=== PATIENT | male | born 1995 | race African-American/Black ===

== ENCOUNTER 2020-02-25 08:08 | Emergency (ER) | payer OTHER ==
[2020-02-25] MEDS ORDERED: NA CHLORIDE 0.9% 1,000 ML ONE ×2 (08:54→16:20)
[2020-02-25 09:13] LABS: Absolute Lymphocytes (CBC) 0.9 K/uL (0.7-4.9); Basophils % 0.7 % (0-1.3); Hematocrit 41.6 % (39.6-49.0); Lymphocytes % 5.3 % (15.3-44.8); RBC Red Blood Cell Count 5.06 M/uL (4.33-5.43)
[2020-02-25 09:21] LABS: Protime INR 1.1
[2020-02-25 09:34] LABS: ALT/SGPT 91 U/L (12-78); Albumin 4.9 g/dL (3.4-5.0); Alkaline Phosphatase 54 U/L (45-117); BUN Blood Urea Nitrogen 67 mg/dL (7-18); Bicarbonate 24 mmol/L (21-32); Bilirubin Direct 0.6 mg/dL (0-0.2); Bilirubin Total 4.2 mg/dL (0.2-1.0); Glucose Level 116 mg/dL (74-106); Potassium 3.6 mmol/L (3.5-5.1); Protein, Total 9.1 g/dL (6.4-8.2); Sodium Level 136 mmol/L (136-145)
[2020-02-25 09:38] LABS: AST/SGOT 382 U/L (15-37)
--- NOTE | 2020-02-25 09:56 | RAD REPORT ---
EXAM DESCRIPTION: RAD - Abdomen 1 View (KUB) - 02/25/2020 9:32 am CLINICAL HISTORY: ABD PAIN Pain COMPARISON: No comparisons FINDINGS: Motion artifact is present, limiting quality of study. The bowel gas pattern is non-obstru ctive. No evidence of free air or pneumatosis. No suspicious calcifications. No significant bony findings. IMPRESSION: Negative examination.
--- NOTE | 2020-02-25 10:04 | ER ---
Nurse's Notes [facility] Name: Alfredo Silvestre Age: 25 yrs Sex: Male : 1995 Arrival Date: 02/25/2020 Time: 08:23 Bed 20 Private MD: Diagnosis: Acute Renal Failure Presentation: 02/24 08:23 Chief complaint: [employer] officer states that patient's behavior has changed over the past em 24 hours. Stated that patient ingested a balloon on Saturday but it wasn't reported until Saturday and within the last 24 hours patient 'has not been acting right'. Coronavirus screen: Client denies travel out of the [place] in the last 14 days. Ebola Screen: Patient negative for fever greater than or equal to 101.5 degrees Fahrenheit, and additional compatible Ebola Virus Disease symptoms Patient denies exposure to infectious person. Patient denies travel to an Ebola-affected area in the 21 days before illness onset. Initial Sepsis Screen: Does the patient meet any 2 criteria? No. Patient's initial sepsis screen is negative. Does the patient have a suspected source of infection? No. Patient's initial sepsis screen is negative. Risk Assessment: Do you want to hurt yourself or someone else? Unable to obtain Other: [facility] officer states that patient was on SI watch. Onset of symptoms was February 24, 2020. 08:23 Method Of Arrival: Law Enforcement: [place] [employer] em 08:23 Acuity: KEESHA 3 em - Social history:: Smoking status: unknown. Screenin:15 Abuse screen: Denies threats or abuse. Nutritional screening: No deficits noted. vg1 Tuberculosis screening: No symptoms or risk factors identified. Fall Risk No fall in past 12 months (0 pts). No secondary diagnosis (0 pts). IV access (20 points). Ambulatory Aid- None/Bed Rest/Nurse Assist (0 pts). Gait- Normal/Bed Rest/Wheelchair (0 pts) Mental Status- Total [place] Fall Scale indicates. Assessment: 08:15 General: Appears uncomfortable, Behavior is anxious. Pain: Denies pain. Neuro: Level of em Consciousness is awake, alert, obeys commands, Oriented to person, place, situation. Cardiovascular: Capillary refill < 3 seconds in bilateral fingers Patient's skin is warm and dry. Respiratory: Airway is patent Respiratory effort is even, unlabored, Respiratory pattern is regular, symmetrical. GI: No signs and/or symptoms were reported involving the gastrointestinal system. : No signs and/or symptoms were reported regarding the genitourinary system. EENT:. Derm: Skin is pink, warm \\T\\ dry. Musculoskeletal: Range of motion: intact in all extremities. 09:55 Reassessment: No changes from previously documented assessment. Patient and/or family vg1 updated on plan of care and expected duration. Pain level reassessed. Patient is grinding teeth. Patient denies any pain or concerns at this time. 11:10 Reassessment: Patient appears in no apparent distress at this time. No changes from vg1 previously documented assessment. Patient is alert, oriented x 3, equal unlabored respirations, skin warm/dry/pink. Patient in bed resting with eyes closed. Patient still has not been able to leave a UA. 12:12 Reassessment: Patient appears in no apparent distress at this time. Patient and/or vg1 family updated on plan of care and expected duration. Pain level reassessed. Patient is alert, oriented x 3, equal unlabored respirations, skin warm/dry/pink. Patient is standing at bedside. States doesn't feel like sitting down any more. [employer] officers at bedside. 14:30 Reassessment: Notified Kim that patient was agitated and would not sit still to vg1 take blood sample. Was given VO to give Ativan 2mg IVP x1. 15:10 Reassessment: pt restless and anxious, no change from the Ativan, Dr. Alvarez notified, em received new medication order, haldol 5 mg IVP x1. 15:40 Reassessment: Patient appears in no apparent distress at this time. pt resting calmly em with eyes closed, respirations even and unlabored, skin pink warm and dry. 15:54 Reassessment: Pt SPo2 at 87%; placed pt on O2 2L NC. vg1 16:30 Reassessment: Gave Report to Akanksha Whitaker, dispatcher. vg1 16:45 Reassessment: Gave report to Hollis WALTER of [facility]. vg1 17:27 Reassessment: Patient appears in no apparent distress at this time. Patient and/or vg1 family updated on plan of care and expected duration. Pain level reassessed. Patient is alert, oriented x 3, equal unlabored respirations, skin warm/dry/pink. resting in bed with eyes closed. [employer] officers at bedside. Awaiting ETA from EMS. Vital Signs: 08:16 BP 142 / 86; Pulse 109; Resp 14; Pulse Ox 96% on R/A; vg1 08:23 BP 142 / 80; Pulse 109; Resp 20; Temp 97.8(O); Pulse Ox 97% on R/A; Pain 0/10; em 09:09 BP 150 / 105; Pulse 120; Resp 14; Pulse Ox 98% on R/A; vg1 09:50 BP 158 / 100; Pulse 105; Resp 20; Pulse Ox 100% on R/A; vg1 10:30 BP 134 / 61; Pulse 109; Resp 16; Pulse Ox 100% on R/A; em 11:00 BP 145 / 77; Pulse 100; Resp 16; Pulse Ox 100% on R/A; vg1 12:00 BP 122 / 102; Pulse 115; Resp 18; Pulse Ox 100% on R/A; vg1 12:36 BP 131 / 103; Pulse 105; Resp 16; Pulse Ox 100% on R/A; vg1 13:00 BP 134 / 98; Pulse 103; Resp 20; Pulse Ox 98% on R/A; vg1 13:30 BP 138 / 105; Pulse 106; Resp 20; Pulse Ox 97% on R/A; vg1 14:00 BP 134 / 103; Pulse 108; Resp 22; Pulse Ox 97% on R/A; vg1 14:30 BP 113 / 100; Pulse 110; Resp 22; Pulse Ox 99% on R/A; vg1 15:00 BP 136 / 103; Pulse 110; Resp 18; Pulse Ox 98% on R/A; vg1 15:30 BP 134 / 75; Pulse 98; Resp 18; Pulse Ox 97% on R/A; em 16:00 BP 131 / 68; Pulse 90; Resp 16; Pulse Ox 91% on 3 lpm NC; vg1 17:00 BP 130 / 81; Pulse 84; Resp 14; Pulse Ox 97% on 2 lpm NC; vg1 17:30 BP 134 / 88; Pulse 98; Resp 14; Pulse Ox 98% on 2 lpm NC; vg1 ED Course: 08:23 Patient arrived in ED. em 08:28 Glenroy Alvarez MD is Attending Physician. kdr 08:31 Triage completed. em 08:36 Keaton Ramires, RN is Primary Nurse. em 08:42 Kerline Webster, RN is Primary Nurse. vg1 08:45 Inserted saline lock: 20 gauge in right antecubital area, using aseptic technique. vg1 Blood collected. Flushed right antecubital with 2 ml normal saline. 08:55 Initial lab(s) drawn, by me, sent to lab. vg1 09:05 Arm band placed on right wrist. vg1 09:05 Patient has correct armband on for positive identification. Pulse ox on. NIBP on. [employer] vg1 officers outside of room.. 09:33 Abdomen 1 View (KUB) XRAY In Process Unspecified. EDMS 09:56 Appears restless. and grinding teeth. vg1 11:23 initiated transfer to [facility]. bd 12:08 Urine collected: clean catch specimen, clear. vg1 14:32 talked to Sierra, "she is working on transfer". bd 14:38 CK Sent. vg1 14:40 attempted to contact Sierra at [facility]. no answer at her ext. bd 15:17 talked to Daniel at [facility], "Sierra will call me back in about 10 min". bd 16:37 Chest Abd Pelvis Wo Con In Process Unspecified. EDMS 17:38 pt accepted in transfer by dr linares, admin approval given by Sierra Pinto. bd 18:14 No provider procedures requiring assistance completed. Patient transferred, IV remains vg1 in place. Administered Medications: 09:00 Drug: NS 0.9% 1000 ml Route: IV; Rate: 1 bolus; Site: right antecubital; vg1 10:37 Follow up: Response: No adverse reaction; IV Intake: 500ml vg1 11:40 Follow up: IV Status: Completed infusion vg1 14:30 Drug: Ativan 2 mg Route: IVP; Site: right antecubital; vg1 15:17 Follow up: Response: No adverse reaction; No change in condition; Anxiety unchanged em 15:20 Drug: HALdol 5 mg Route: IVP; Site: right antecubital; vg1 16:14 Follow up: Response: No adverse reaction; RASS: Alert and Calm (0) vg1 16:13 Drug: NS 0.9% 1000 ml Route: IV; Rate: 250 ml/hr; Site: right antecubital; vg1 18:17 Follow up: IV Status: Infusion continued upon transfer vg1 Intake: 10:37 IV: 500ml; Total: 500ml. vg1 Outcome: 10:03 ER care complete, transfer ordered by . kdr 18:14 Transferred by ground EMS to [facility], Transfer form vg1 completed. X-rays sent w/ patient. 18:14 Condition: stable 18:14 Instructed on the need for transfer, Demonstrated understanding of instructions. 18:18 Patient left the ED. vg1 Signatures: Dispatcher [employer] EDMS Debbie Blackwell Kevin, MD MD kdr Munoz, Edgar, RN RN Kerline Ugalde RN RN vg1
--- NOTE | 2020-02-25 10:04 | EDPHYS ---
Physician Documentation [facility] Name: Alfredo Silvestre Age: 25 yrs Sex: Male : 1995 Arrival Date: 02/25/2020 Time: 08:23 Bed 20 Private MD: ED Physician Glenroy Alvarez HPI: 02/24 18:06 This 25 yrs old Black Male presents to ER via Law Enforcement with complaints of kdr ingested unknown substance. 18:06 The patient may have swallowed a substance or object on Saturday but was not reported kdr until Saturday. In the past 24 hours, the patient behavior has been more erratic . 18:07 Onset: The symptoms/episode began/occurred gradually, 1 day(s) ago. Severity of kdr symptoms: At their worst the symptoms were mild moderate in the emergency department the symptoms are unchanged. It is unknown whether or not the patient has had similar symptoms in the past. It is unknown whether or not the patient has recently seen a physician. - Social history:: Smoking status: unknown. ROS: 18:07 Constitutional: Negative for fever, chills, and weight loss, Eyes: Negative for injury, kdr pain, redness, and discharge, Neck: Negative for injury, pain, and swelling, Cardiovascular: Negative for chest pain, palpitations, and edema, Respiratory: Negative for shortness of breath, cough, wheezing, and pleuritic chest pain, Abdomen/GI: Negative for abdominal pain, nausea, vomiting, diarrhea, and constipation, Back: Negative for injury and pain, : Negative for injury, bleeding, discharge, and swelling, MS/Extremity: Negative for injury and deformity, Skin: Negative for injury, rash, and discoloration, Allergy/Immunology: Negative for hives, rash, and allergies, Endocrine: Negative for neck swelling, polydipsia, polyuria, polyphagia, and marked weight changes, Hematologic/Lymphatic: Negative for swollen nodes, abnormal bleeding, and unusual bruising. 18:07 Neuro: Positive for altered mental status, Negative for headache, numbness, seizure activity, tremor, visual changes, weakness. 18:07 Psych: Positive for anxiety, Negative for Exam: 18:07 Constitutional: This is a well developed, well nourished patient who is awake, alert, kdr and in no acute distress. Head/Face: Normocephalic, atraumatic. Eyes: Pupils equal round and reactive to light, extra-ocular motions intact. Lids and lashes normal. Conjunctiva and sclera are non-icteric and not injected. Cornea within normal limits. Periorbital areas with no swelling, redness, or edema. Neck: Trachea midline, no thyromegaly or masses palpated, and no cervical lymphadenopathy. Supple, full range of motion without nuchal rigidity, or vertebral point tenderness. No Meningismus. Chest/axilla: Normal chest wall appearance and motion. Nontender with no deformity. No lesions are appreciated. Cardiovascular: Regular rate and rhythm with a normal S1 and S2. No gallops, murmurs, or rubs. Normal PMI, no JVD. No pulse deficits. Respiratory: Lungs have equal breath sounds bilaterally, clear to auscultation and percussion. No rales, rhonchi or wheezes noted. No increased work of breathing, no retractions or nasal flaring. Back: No spinal tenderness. No costovertebral tenderness. Full range of motion. Skin: Warm, dry with normal turgor. Normal color with no rashes, no lesions, and no evidence of cellulitis. MS/ Extremity: Pulses equal, no cyanosis. Neurovascular intact. Full, normal range of motion. Neuro: Awake and alert, GCS 15, oriented to person, place, time, and situation. Cranial nerves II-XII grossly intact. Motor strength 5/5 in all extremities. Sensory grossly intact. Cerebellar exam normal. Normal gait. Psych: Awake, alert, with orientation to person, place and time. Behavior, mood, and affect are within normal limits. 18:07 Abdomen/GI: Inspection: abdomen appears normal, Bowel sounds: active, Palpation: soft, nontender. Vital Signs: 08:16 BP 142 / 86; Pulse 109; Resp 14; Pulse Ox 96% on R/A; vg1 08:23 BP 142 / 80; Pulse 109; Resp 20; Temp 97.8(O); Pulse Ox 97% on R/A; Pain 0/10; em 09:09 BP 150 / 105; Pulse 120; Resp 14; Pulse Ox 98% on R/A; vg1 09:50 BP 158 / 100; Pulse 105; Resp 20; Pulse Ox 100% on R/A; vg1 10:30 BP 134 / 61; Pulse 109; Resp 16; Pulse Ox 100% on R/A; em 11:00 BP 145 / 77; Pulse 100; Resp 16; Pulse Ox 100% on R/A; vg1 12:00 BP 122 / 102; Pulse 115; Resp 18; Pulse Ox 100% on R/A; vg1 12:36 BP 131 / 103; Pulse 105; Resp 16; Pulse Ox 100% on R/A; vg1 13:00 BP 134 / 98; Pulse 103; Resp 20; Pulse Ox 98% on R/A; vg1 13:30 BP 138 / 105; Pulse 106; Resp 20; Pulse Ox 97% on R/A; vg1 14:00 BP 134 / 103; Pulse 108; Resp 22; Pulse Ox 97% on R/A; vg1 14:30 BP 113 / 100; Pulse 110; Resp 22; Pulse Ox 99% on R/A; vg1 15:00 BP 136 / 103; Pulse 110; Resp 18; Pulse Ox 98% on R/A; vg1 15:30 BP 134 / 75; Pulse 98; Resp 18; Pulse Ox 97% on R/A; em 16:00 BP 131 / 68; Pulse 90; Resp 16; Pulse Ox 91% on 3 lpm NC; vg1 17:00 BP 130 / 81; Pulse 84; Resp 14; Pulse Ox 97% on 2 lpm NC; vg1 17:30 BP 134 / 88; Pulse 98; Resp 14; Pulse Ox 98% on 2 lpm NC; vg1 MDM: 10:03 Patient medically screened. kdr 18:07 Data reviewed: vital signs, nurses notes, lab test result(s), radiologic studies. kdr Counseling: I had a detailed discussion with the patient and/or guardian regarding: the historical points, exam findings, and any diagnostic results supporting the discharge/admit diagnosis, lab results, radiology results, the need to transfer to another facility. 02/24 08:31 Order name: Acetaminophen; Complete Time: 09:58 kdr 02/24 08:31 Order name: Basic Metabolic Panel; Complete Time: 09:58 kdr 02/24 08:31 Order name: CBC with Diff; Complete Time: 14:05 kdr 02/24 08:31 Order name: ETOH Level; Complete Time: 09:58 kdr 02/24 08:31 Order name: Hepatic Function; Complete Time: 09:58 kdr 02/24 08:31 Order name: PT-INR; Complete Time: 09:58 kdr 02/24 08:31 Order name: Ptt, Activated; Complete Time: 09:58 kdr 02/24 08:31 Order name: Salicylate; Complete Time: 09:58 kdr 02/24 08:31 Order name: Urine Drug Screen; Complete Time: 14:05 kdr 02/24 08:36 Order name: Abdomen 1 View (KUB) XRAY; Complete Time: 09:58 kdr 02/24 09:17 Order name: CBC Smear Scan; Complete Time: 14:05 EDMS 02/24 13:34 Order name: Urine Dipstick--Ancillary (enter results); Complete Time: 14:05 bd 02/24 14:10 Order name: CK; Complete Time: 18:05 kdr 02/24 08:31 Order name: IV Saline Lock; Complete Time: 09:00 kdr 02/24 08:31 Order name: Labs collected and sent; Complete Time: 09:00 kdr 02/24 08:31 Order name: Urine Dipstick-Ancillary (obtain specimen); Complete Time: 12:11 kdr 02/24 13:16 Order name: Diet Regular; Complete Time: 13:17 bd 02/24 16:22 Order name: Chest Abd Pelvis Wo Con; Complete Time: 18:05 EDMS Administered Medications: 09:00 Drug: NS 0.9% 1000 ml Route: IV; Rate: 1 bolus; Site: right antecubital; vg1 10:37 Follow up: Response: No adverse reaction; IV Intake: 500ml vg1 11:40 Follow up: IV Status: Completed infusion vg1 14:30 Drug: Ativan 2 mg Route: IVP; Site: right antecubital; vg1 15:17 Follow up: Response: No adverse reaction; No change in condition; Anxiety unchanged em 15:20 Drug: HALdol 5 mg Route: IVP; Site: right antecubital; vg1 16:14 Follow up: Response: No adverse reaction; RASS: Alert and Calm (0) vg1 16:13 Drug: NS 0.9% 1000 ml Route: IV; Rate: 250 ml/hr; Site: right antecubital; vg1 18:17 Follow up: IV Status: Infusion continued upon transfer vg1 Disposition: 02/25/20 10:03 Transfer ordered to [facility]. Diagnosis is Acute Renal Failure. - Reason for transfer: Higher level of care. - Accepting physician is [facility]. - Condition is Fair. - Problem is new. - Symptoms are unchanged. Signatures: Dispatcher [employer] Glenroy Monahan MD MD [facility] Keaton Ramires, RN RN em Kerline Webster RN RN vg1 Corrections: (The following items were deleted from the chart) 16:22 16:01 Chest Abdomen Pelvis W Con+CT.RAD.BRZ ordered. [facility] 18:08 18:06 The patient may have swallowed a substance or object. [facility] 18:18 10:03 02/25/2020 10:03 Transfer ordered to [facility]. Diagnosis is Acute Renal vg1 Failure. Reason for transfer: Higher level of care. Accepting physician is [facility]. Condition is Fair. Problem is new. Symptoms are unchanged. kdr
[2020-02-25 11:39] LABS: Blood Morphology Comment NOTED (NOT SEEN); Platelet Estimate DECR; White Blood Cell Scan OK (OK)
[2020-02-25 11:40] LABS: Platelets, Giant FEW
[2020-02-25 12:29] LABS: Barbiturates NEGATIVE (NEGATIVE); Benzodiazepines NEGATIVE (NEGATIVE); Cocaine NEGATIVE (NEGATIVE); METHAMPHETAM POSITIVE (NEGATIVE); Methadone NEGATIVE (NEGATIVE); Opiates NEGATIVE (NEGATIVE); Phencyclidine NEGATIVE (NEGATIVE); THC Cannibis NEGATIVE (NEGATIVE)
[2020-02-25 13:43] LABS: Urine Blood 3+ (NEG); Urine Glucose NEGATIVE (NEG); Urine Protein 2+ (NEG); Urine Specific Gravity >1.030 (1.005-1.030); Urine pH 5.5 (5.0-7.0)
[2020-02-25] MEDS ORDERED: LORazepam 2 MG/ML VIAL ONE (14:40)
[2020-02-25] MEDS ORDERED: HALOPERIDOL LACT 5 MG/ML INJ ONE (15:24)
--- NOTE | 2020-02-25 16:59 | RAD REPORT ---
EXAM DESCRIPTION: CT - Chest Abd Pelvis Wo Con - 02/25/2020 4:37 pm CLINICAL HISTORY: Chest and abdominal pain. Possible substance suggestion TECHNIQUE: Computed axial tomography of the chest, abdomen and pelvis was obtained. Oral contrast wa s given. IV contrast was not requested. All CT scans are performed using dose optimization technique as appropriate and may include automated exposure control or mA/KV adjustment according to patient size. FINDINGS: The evaluation of mediastinum, jameson, vessels and solid organs is limited secondary to the lack of IV contrast administration No mediastinal or hilar lymphadenopathy is seen. A pleural effusion is not present. A pericardial effusion is not seen. Lungs are clear. The liver, spleen, pancreas, adrenals and kidneys appear grossly normal There is no evidence of diverticulitis. Artifact from the overlying hand cups obscures evaluation of portions of the pelvis 4 centimeter structure is present within the posterior gastric body Hounsfield unit 91 IMPRESSION: 4 centimeter structure within the posterior aspect of the gastric body may represent an ingested foreign body
[2020-02-25 20:53] VITALS: TEMP 97.8
[2020-02-25 21:17] VITALS: BP 134/88; O2SAT 98
== END 2020-02-25 18:18 | disposition short-term general hospital (02) ==
LOC: ER 08:08
DX: N17.9 Acute kidney failure, unspecified (principal)
CPT/HCPCS: 36415; 71250; 74018; 74176; 80048; 80076; 80307; 80320; 80329; 81003; 82550; 85025; 85610; 85730; 96361; 96374; 96375; 99285; J1630; J7030